=== PATIENT | female | born 1995 | race Caucasian/White ===

== ENCOUNTER 2020-03-23 22:29 | Inpatient (IN) | payer OTHER ==
[~2020-03-23] VITALS: Ht 165.1 cm; Wt 81.6 kg
[~2020-03-23 22:29] MED LIST: AMPICILLIN 2,000 MG in NACL 0.9% MINI-BAG PLUS 100 ML IV ONE
[2020-03-23] MEDS ORDERED: LACTATED RINGERS 1,000 ML IV SCH (23:02)
[2020-03-23 23:37] LABS: BASOPHILS % (AUTO) 0.2 % (0.0-2.0); EOSINOPHILS # (AUTO) 0.3 K/uL (0-0.4); EOSINOPHILS % (AUTO) 2.4 % (0.0-4.0); HEMATOCRIT 40.3 % (36-48); HEMOGLOBIN 13.4 g/dL (12.0-16.0); LYMPHOCYTES # (AUTO) 2.6 K/uL (2.5-16.5); LYMPHOCYTES % (AUTO) 21.2 % (20.5-51.1); MEAN CORPUSCULAR HEMOGLOBIN 28 pg (27-31); MEAN CORPUSCULAR HGB CONC 33 g/dL (33-37); MONOCYTES # (AUTO) 1.1 K/uL (0.8-1.0); MONOCYTES % (AUTO) 8.8 % (1.7-9.3); NEUTROPHILS # (AUTO) 8.2 K/uL (1.8-7.7); NEUTROPHILS % (AUTO) 67.4 % (42.2-75.2); PLATELET COUNT (AUTO) 195 K/uL (140-450); RED BLOOD CELL COUNT(AUTO) 4.79 MIL/uL (4.20-5.40); RED CELL DISTRIBUTION WIDTH 14.1 % (11.6-13.7); WHITE BLOOD COUNT (AUTO) 12.2 K/uL (4.8-10.8)
[2020-03-23 23:37] LABS: APPEARANCE,URINE CLEAR (CLEAR); BILIRUBIN,URINE NEGATIVE (NEGATIVE); BLOOD, URINE NEGATIVE (NEGATIVE); COLOR,URINE YELLOW (YELLOW); LEUKOCYTE ESTERASE ,URINE TRACE (NEGATIVE); NITRITE, URINE NEGATIVE (NEGATIVE); UGLUCOSE NEGATIVE (NEGATIVE)
[2020-03-24 00:07] LABS: RBC,URINE 0-5 /HPF (0-5)
[2020-03-24] MEDS ORDERED: AMPICILLIN 2,000 MG VIAL ONE (00:19)
[2020-03-24] MEDS ORDERED: MISOPROSTOL 25 MCG TAB VG SCH (00:45)
[2020-03-24] MEDS ORDERED: MISOPROSTOL 25 MCG TAB ONE (01:02)
[2020-03-24] MEDS ORDERED: MISOPROSTOL 25 MCG TAB VG PRN (01:40)
[2020-03-24] MEDS ORDERED: AMPICILLIN 1,000 MG VIAL ONE ×6 (03:58→23:43)
[2020-03-24] MEDS: AMPICILLIN 1,000 MG in NACL 0.9% MINI-BAG PLUS 50 ML IV SCH ×6 (04:01→23:49)
[2020-03-24] MEDS: OXYTOCIN 20 UNITS/LR PREMIX 1,000 ML IV SCH (21:55)
[2020-03-25] MEDS ORDERED: AMPICILLIN 1,000 MG VIAL ONE ×3 (03:49→12:30)
[2020-03-25] MEDS: AMPICILLIN 1,000 MG in NACL 0.9% MINI-BAG PLUS 50 ML IV SCH ×3 (03:52→12:35)
[2020-03-25] MEDS ORDERED: ONDANSETRON 4 MG/2 ML VIAL ONE (04:59)
[2020-03-25] MEDS ORDERED: MORPHINE SULFATE 4 MG/ML SYR ONE (04:59)
[2020-03-25] MEDS: MORPHINE SULFATE 4 MG/ML SYR IVP PRN ×3 (06:57→12:42)
[2020-03-25] MEDS: ONDANSETRON 4 MG/2 ML VIAL IVP PRN ×3 (06:57→12:41)
--- NOTE | 2020-03-25 08:44 | NUR ---
PATIENT HAS BEEN SCREENED AND CATEGORIZED LOW NUTRITION RISK. PATIENT WILL BE SEEN WITHIN 7 DAYS OF ADMISSION. 03/30/[address]
[2020-03-25] MEDS ORDERED: MAGNESIUM HYDROXIDE 2400 MG/30 ML UDC PO SCH (10:00)
[2020-03-25 10:26] LABS: BASOPHILS # (AUTO) 0.1 K/uL (0.00-0.22); BASOPHILS % (AUTO) 0.5 % (0.0-2.0); EOSINOPHILS # (AUTO) 0.2 K/uL (0-0.4); EOSINOPHILS % (AUTO) 1.4 % (0.0-4.0); HEMATOCRIT 38.7 % (36-48); HEMOGLOBIN 12.8 g/dL (12.0-16.0); LYMPHOCYTES # (AUTO) 1.9 K/uL (2.5-16.5); LYMPHOCYTES % (AUTO) 13.4 % (20.5-51.1); MEAN CORPUSCULAR HEMOGLOBIN 28 pg (27-31); MEAN CORPUSCULAR HGB CONC 33 g/dL (33-37); MEAN CORPUSCULAR VOLUME 84.1 fL (80-94); MONOCYTES # (AUTO) 0.9 K/uL (0.8-1.0); NEUTROPHILS # (AUTO) 11.4 K/uL (1.8-7.7); NEUTROPHILS % (AUTO) 78.7 % (42.2-75.2); PLATELET COUNT (AUTO) 159 K/uL (140-450); RED BLOOD CELL COUNT(AUTO) 4.61 MIL/uL (4.20-5.40); RED CELL DISTRIBUTION WIDTH 14.3 % (11.6-13.7); WHITE BLOOD COUNT (AUTO) 14.4 K/uL (4.8-10.8)
[2020-03-25 10:51] LABS: PROTHROMBIN TIME 9.3 secs (10.8-13.4)
[2020-03-25 11:40] LABS: ALBUMIN 2.2 g/dL (3.4-5.0); ANION GAP 13.4 (8-16); CARBON DIOXIDE 22.1 mmol/L (21-32); CREATININE 0.6 mg/dL (0.6-1.3); POTASSIUM 3.5 mmol/L (3.5-5.1); TOTAL BILIRUBIN 0.5 mg/dL (0.0-1.0); URIC ACID 6.5 mg/dL (2.6-7.2)
[2020-03-25] MEDS ORDERED: LIDOCAINE 1% 500 MG/50 ML VIAL ONE (13:31)
[2020-03-25 15:05] LABS: APPEARANCE,URINE CLEAR (CLEAR); BILIRUBIN,URINE NEGATIVE (NEGATIVE); BLOOD, URINE TRACE-I (NEGATIVE); COLOR,URINE YELLOW (YELLOW); LEUKOCYTE ESTERASE ,URINE NEGATIVE (NEGATIVE); NITRITE, URINE NEGATIVE (NEGATIVE); UGLUCOSE NEGATIVE (NEGATIVE)
[2020-03-25 16:02] LABS: URINE TOTAL PROTEIN 23.5 mg/dL (0-12)
[2020-03-25] MEDS ORDERED: OXYTOCIN 20 UNITS/LR PREMIX 1,000 ML IV ONE (16:42)
[2020-03-25] MEDS: OXYTOCIN 20 UNITS/LR PREMIX 1,000 ML IV SCH (16:47)
[2020-03-25] MEDS ORDERED: SIMETHICONE 80 MG TAB.CHEW PO PRN (16:50)
[2020-03-25] MEDS ORDERED: METHYLERGONOVINE 0.2 MG/ML AMP IM PRN (16:50)
[2020-03-25] MEDS ORDERED: METHYLERGONOVINE 0.2 MG TAB PO PRN (16:50)
[2020-03-25] MEDS ORDERED: BENZOCAINE/MENTHOL 20%-0.5% 60 GM CAN TP PRN (16:50)
[2020-03-25] MEDS ORDERED: BISACODYL 5 MG TABEC PO PRN (16:50)
[2020-03-25] MEDS ORDERED: IBUPROFEN 800 MG TAB PO PRN (16:50)
[2020-03-25] MEDS ORDERED: MEASLES, MUMPS, AND RUBELLA 1 VIAL SQVAC PRN (16:50)
[2020-03-25] MEDS ORDERED: DOCUSATE SODIUM 100 MG GELCAP PO PRN (16:50)
[2020-03-25] MEDS ORDERED: IBUPROFEN 600 MG TAB PO PRN ×2 (16:50)
[2020-03-25] MEDS ORDERED: OXYTOCIN 10 UNITS/ML VIAL IM PRN (16:50)
[2020-03-26 09:13] LABS: HEMATOCRIT 36.2 % (36-48); HEMOGLOBIN 12.1 g/dL (12.0-16.0)
== END 2020-03-27 21:50 | disposition home or self-care (01) | DRG 560 ==
LOC: MLD 22:29 → MFCC 03-25 21:04
PROVIDERS: ADMIT Obstetrics & Gynecology; ATTEND Obstetrics & Gynecology
PROC: 10E0XZZ Delivery of Products of Conception, External Approach (ICD-10-PCS; principal; 2020-03-25)
PROC: 0HQ9XZZ Repair Perineum Skin, External Approach (ICD-10-PCS; 2020-03-25)
PROC: 3E0P7VZ Introduction of Hormone into Female Reproductive, Via Natural or Artificial Opening (ICD-10-PCS; 2020-03-25)
PROC: 10907ZC Drainage of Amniotic Fluid, Therapeutic from Products of Conception, Via Natural or Artificial Opening (ICD-10-PCS; 2020-03-25)
DX: O70.0 First degree perineal laceration during delivery (principal); O99.824 Streptococcus B carrier state complicating childbirth; Z37.0 Single live birth; Z3A.39 39 weeks gestation of pregnancy
CPT/HCPCS: 36415; 59200; 59409; 76815; 80053; 81001; 81003; 82570; 84550; 85018; 85025; 85384; 85610; 85730; 86592; 86886; 86900; 86901; 87086; J0290; J2001; J2270; J2405; J2590; J7120; Q0092

== ENCOUNTER 2021-06-19 16:47 | Inpatient (IN) | payer OTHER, SELFPAY ==
[~2021-06-19] VITALS: Ht 165.1 cm; Wt 88.9 kg
[2021-06-19] MEDS: LACTATED RINGERS 1,000 ML IV SCH (09:11)
[2021-06-19] MEDS ORDERED: PNV91TAB10 PO (17:59)
[2021-06-19] MEDS ORDERED: OXYTOCIN 20 UNITS in LACTATED RINGERS 1,000 ML IV SCH (18:00)
[2021-06-19] MEDS ORDERED: MORPHINE SULFATE 5 MG/ML VIAL IVP PRN (18:40)
[2021-06-19] MEDS ORDERED: ONDANSETRON 4 MG/2 ML VIAL IVP PRN (18:40)
[2021-06-19 18:53] VITALS: BP 122/69
[2021-06-19 19:12] LABS: BASOPHILS # (AUTO) 0.1 K/uL (0.00-0.22); BASOPHILS % (AUTO) 0.7 % (0.0-2.0); EOSINOPHILS % (AUTO) 0.2 % (0.0-4.0); HEMATOCRIT 37.5 % (36-48); HEMOGLOBIN 12.3 g/dL (12.0-16.0); LYMPHOCYTES % (AUTO) 16.8 % (20.5-51.1); MEAN CORPUSCULAR HEMOGLOBIN 27 pg (27-31); MEAN CORPUSCULAR HGB CONC 33 g/dL (33-37); MEAN CORPUSCULAR VOLUME 83.8 fL (80-94); MONOCYTES # (AUTO) 0.9 K/uL (0.8-1.0); MONOCYTES % (AUTO) 7.4 % (1.7-9.3); NEUTROPHILS # (AUTO) 8.9 K/uL (1.8-7.7); NEUTROPHILS % (AUTO) 74.9 % (42.2-75.2); PLATELET COUNT (AUTO) 217 K/uL (140-450); RED BLOOD CELL COUNT(AUTO) 4.48 MIL/uL (4.20-5.40); RED CELL DISTRIBUTION WIDTH 13.9 % (11.6-13.7); WHITE BLOOD COUNT (AUTO) 11.9 K/uL (4.8-10.8)
[2021-06-19 19:30] LABS: ALBUMIN 2.4 g/dL (3.4-5.0); ANION GAP 15.8 (8-16); CARBON DIOXIDE 21.6 mmol/L (21-32); CREATININE 0.7 mg/dL (0.6-1.3); POTASSIUM 3.4 mmol/L (3.5-5.1); TOTAL BILIRUBIN 0.2 mg/dL (0.0-1.0)
[2021-06-19 19:32] LABS: APPEARANCE,URINE HAZY (CLEAR); BILIRUBIN,URINE NEGATIVE (NEGATIVE); BLOOD, URINE NEGATIVE (NEGATIVE); COLOR,URINE YELLOW (YELLOW); LEUKOCYTE ESTERASE ,URINE 2+ (NEGATIVE); NITRITE, URINE NEGATIVE (NEGATIVE); UGLUCOSE NEGATIVE (NEGATIVE)
[2021-06-19 19:57] LABS: WBC,URINE 16-25 (MOD) /HPF (0-5)
[2021-06-19] MEDS ORDERED: AMPICILLIN 2,000 MG in NACL 0.9% 100 ML IV SCH (20:00)
[2021-06-19 20:05] LABS: URINE TOTAL PROTEIN 47.4 mg/dL (0-12)
[2021-06-19] MEDS ORDERED: AMPICILLIN 2,000 MG VIAL ONE (21:00)
[2021-06-20] MEDS ORDERED: AMPICILLIN 1,000 MG VIAL ONE ×6 (00:55→23:38)
[2021-06-20] MEDS: AMPICILLIN 1,000 MG in NACL 0.9% 50 ML IV SCH ×6 (01:00→23:47)
[2021-06-20] MEDS: MISOPROSTOL 25 MCG TAB VG SCH ×2 (01:04→16:32)
--- NOTE | 2021-06-20 08:49 | NUR ---
PATIENT HAS BEEN SCREENED AND CATEGORIZED LOW NUTRITION RISK. PATIENT WILL BE SEEN WITHIN 7 DAYS OF ADMISSION. 06/26/[address]
[2021-06-20] MEDS: LACTATED RINGERS 1,000 ML IV SCH (19:43)
[2021-06-21] MEDS ORDERED: OXYTOCIN 20 UNITS/LR PREMIX 1,000 ML IV ONE (02:03)
[2021-06-21] MEDS ORDERED: ROPIVACAINE 0.2%/NS PREMIX 200 ML EPI ONE (03:51)
[2021-06-21] MEDS ORDERED: AMPICILLIN 1,000 MG VIAL ONE (04:54)
[2021-06-21] MEDS: AMPICILLIN 1,000 MG in NACL 0.9% 50 ML IV SCH (04:59)
[2021-06-21] MEDS ORDERED: METHYLERGONOVINE 0.2 MG TAB PO PRN (07:15)
[2021-06-21] MEDS ORDERED: MEASLES, MUMPS, AND RUBELLA 1 VIAL SQVAC ONE (07:15)
[2021-06-21] MEDS ORDERED: oxyCODONE/APAP 5/325 MG 1 TAB TAB PO PRN (07:15)
[2021-06-21] MEDS ORDERED: OXYTOCIN 10 UNITS/ML VIAL IM PRN (07:15)
[2021-06-21] MEDS ORDERED: METHYLERGONOVINE 0.2 MG/ML AMP IM PRN (07:15)
[2021-06-21] MEDS ORDERED: BENZOCAINE/MENTHOL 20%-0.5% 60 GM CAN TP PRN (07:15)
[2021-06-21] MEDS ORDERED: IBUPROFEN 800 MG TAB PO PRN ×2 (07:15)
[2021-06-21] MEDS ORDERED: IBUPROFEN 600 MG TAB PO PRN (07:15)
[2021-06-21] MEDS ORDERED: MEASLES, MUMPS, AND RUBELLA 1 VIAL SQVAC PRN (07:35)
[2021-06-22] MEDS ORDERED: MEASLES, MUMPS, AND RUBELLA 1 VIAL SQVAC ONE (04:05)
[2021-06-22 06:21] LABS: HEMATOCRIT 35.7 % (36-48); HEMOGLOBIN 12.1 g/dL (12.0-16.0)
== END 2021-06-22 13:25 | disposition home or self-care (01) | DRG 560 ==
LOC: MFCC 16:47
PROVIDERS: ADMIT Obstetrics & Gynecology; ATTEND Obstetrics & Gynecology
PROC: 10E0XZZ Delivery of Products of Conception, External Approach (ICD-10-PCS; principal; 2021-06-21)
PROC: 0HQ9XZZ Repair Perineum Skin, External Approach (ICD-10-PCS; 2021-06-21)
PROC: 3E0R3BZ Introduction of Anesthetic Agent into Spinal Canal, Percutaneous Approach (ICD-10-PCS; 2021-06-21)
PROC: 00HU33Z Insertion of Infusion Device into Spinal Canal, Percutaneous Approach (ICD-10-PCS; 2021-06-21)
DX: O77.0 Labor and delivery complicated by meconium in amniotic fluid (principal); Z37.0 Single live birth; O24.420 Gestational diabetes mellitus in childbirth, diet controlled; O13.4 Gestational [pregnancy-induced] hypertension without significant proteinuria, complicating childbirth; O69.81X0 Labor and delivery complicated by cord around neck, without compression, not applicable or unspecified; O70.0 First degree perineal laceration during delivery; Z20.822 Contact with and (suspected) exposure to COVID-19; O99.824 Streptococcus B carrier state complicating childbirth; Z3A.37 37 weeks gestation of pregnancy
CPT/HCPCS: 36415; 51702; 59200; 59409; 76815; 80053; 81001; 82570; 85018; 85025; 86592; 86886; 86900; 86901; 87086; 90715; J0290; J2590; J2795; Q0092